=== PATIENT | male | born 1985 | race Caucasian/White ===

== ENCOUNTER 2019-09-18 18:07 | Emergency (ER) | payer BC ==
[~2019-09-18] VITALS: Ht 177.8 cm; Wt 100.0 kg
[~2019-09-18 18:07] MED LIST: ALBUTEROL1.25 MG/3 IH; LEVAQUIN 750MG750 M1 PO; NORCO 325 MG-51 TAB PO; PREDNISONE20 MG PO; SINGULAIR; VENTOLIN H0.09 MG/AC IH
[2019-09-18 18:16] VITALS: TEMP 97.8
[2019-09-18 19:20] VITALS: BP 139/91; PULSE 84
== END 2019-09-18 19:22 | disposition home or self-care (01) ==
LOC: COL.ER 18:07
DX: B34.9 Viral infection, unspecified (principal); Z20.828 Contact with and (suspected) exposure to other viral communicable diseases

== ENCOUNTER 2021-08-28 17:31 | Emergency (ER) | payer BC ==
[~2021-08-28] VITALS: Ht 180.3 cm; Wt 100.0 kg
[2021-08-28 18:01] VITALS: TEMP 98.1
[2021-08-28 18:43] LABS: BASO % 0.4 % (0.0-2.0); EOS # 0.2 K/mm3 (0.0-0.7); EOS % 3.1 % (0.0-4.0); GRAN # 3.4 K/mm3 (1.4-6.5); GRAN % 61.6 % (42.2-75.2); HEMATOCRIT 44.1 % (42.0-52.0); HEMOGLOBIN 15.6 g/dl (13.5-18.0); LYMPH # 1.5 K/mm3 (1.2-3.4); LYMPH % 27.2 % (20.0-51.0); MEAN CELL VOLUME 89 fl (80.0-100.0); MEAN CORPUSCULAR HEMOGLOBIN 32 pg (27-31); MEAN CORPUSCULAR HGB CONC 35 g/dl (33.0-37.0); MEAN PLATELET VOLUME 9.1 fl (7.4-10.4); MONO # 0.4 K/mm3 (0.1-0.6); MONO % 7.3 % (1.7-9.3); PLATELET COUNT 188 K/mm3 (130-400); RED BLOOD COUNT 4.94 M/mm3 (4.20-5.60); REDCELL DISTRIBUTION WIDTH-CV 12.7 % (11.5-14.5)
[2021-08-28 19:04] LABS: ALANINE AMINOTRANSFERASE 74 U/L (0-55); ALBUMIN 4.2 gm/dL (3.5-5.0); ALKALINE PHOSPHATASE 84 U/L (40-150); ANION GAP 14 mmol/L (7-16); AST,SGOT 33 U/L (5-34); BILIRUBIN,TOTAL 0.9 mg/dL (0.2-1.2); BLOOD UREA NITROGEN 16 mg/dL (9-21); CALCIUM 9.8 mg/dL (8.4-10.2); CARBON DIOXIDE 22 mmol/L (22-29); CHLORIDE 106 mmol/L (98-107); CREATININE, serum 0.96 mg/dL (0.72-1.25); GLUCOSE 124 mg/dL (70-99); POTASSIUM 3.9 mmol/L (3.5-4.5); SODIUM 142 mmol/L (136-145); TOTAL PROTEIN 7.2 gm/dL (6.2-8.1)
[2021-08-28 19:21] LABS: TROPONIN-I < 0.010 ng/mL (0.00-0.033)
[2021-08-28 20:00] VITALS: BP 144/88; PULSE 79
== END 2021-08-28 20:05 | disposition home or self-care (01) ==
LOC: COL.ER 17:31
PROVIDERS: Nurse Practitioner Primary Care
DX: M94.0 Chondrocostal junction syndrome [Tietze] (principal); Z28.310 Unvaccinated for COVID-19; Z82.49 Family history of ischemic heart disease and other diseases of the circulatory system